=== PATIENT | female | born 1990 | race Caucasian/White ===

== ENCOUNTER → 2016-07-17 | Outpatient (CLI) | payer BC, OTHER ==
--- NOTE | 2016-07-17 21:37 | REP ---
Clinical: Trauma. Technique: AP, lateral, bilateral oblique views left foot Findings: The osseous structures and joint spaces are intact and normal. There is no evidence for acute fracture or dislocation. Surrounding soft tissues are unremarkable. No subcutaneous emphysema or radiodense foreign body. Impression: Normal examination. No acute fracture or dislocation. Signed by Ld Waller MD 07/17/2016 09:29 P
== END ==
LOC: M WUC 16:51
PROVIDERS: ATTEND Physician Assistant
DX: S93.602A Unspecified sprain of left foot, initial encounter (principal); X58.XXXA Exposure to other specified factors, initial encounter; Y92.89 Other specified places as the place of occurrence of the external cause

== ENCOUNTER → 2016-10-15 | Outpatient (REF) | payer OTHER | LOC: M SFHCWAGY 15:05 | PROVIDERS: ATTEND Nurse Practitioner Family | DX: Z12.4 Encounter for screening for malignant neoplasm of cervix (principal) ==

== ENCOUNTER → 2016-10-17 | Outpatient (CLI) | payer OTHER ==
--- NOTE | 2016-10-17 15:22 | REP ---
AP LATERAL THORACIC SPINE, THREE VIEWS: HISTORY: Disc degeneration. There is no acute fracture or subluxation. The intervertebral discs are normal in height. There is minimal scoliosis of the mid thoracic spine convex to the right and lower thoracic and lumbar spine convex to the left. IMPRESSION: There is no acute fracture or subluxation. Signed by Colin Oconnor MD 10/17/2016 03:24 P
--- NOTE | 2016-10-17 15:22 | REP ---
LUMBAR SPINE, TWO VIEWS: HISTORY: Disc degeneration. There is no acute fracture or subluxation. The intervertebral discs are normal in height. There is minimal scoliosis of the lower thoracic and lumbar spine convex to the left. IMPRESSION: There is no acute fracture or subluxation. Signed by Colin Oconnor MD 10/17/2016 03:25 P
--- NOTE | 2016-10-17 15:40 | REP ---
CERVICAL SPINE, TWO VIEWS: HISTORY: Disc degeneration. There is no acute fracture or subluxation. The intervertebral discs are normal in height. There is loss of the normal lordotic curve. IMPRESSION: There is no acute fracture or subluxation. Signed by Colin Oconnor MD 10/17/2016 03:41 P
== END ==
LOC: M RAD 14:22
PROVIDERS: ATTEND Chiropractor
DX: M50.31 Other cervical disc degeneration, high cervical region (principal)

== ENCOUNTER → 2018-02-24 | Outpatient (REF) | payer OTHER, BC | LOC: M LAB REF 19:17 | DX: R30.0 Dysuria (principal) ==

== ENCOUNTER → 2019-01-11 | Outpatient (CLI) | payer BC ==
--- NOTE | 2019-01-11 13:39 | REP ---
LEFT BREAST ULTRASOUND: HISTORY: Left breast lump 1 month just medial and inferior to left nipple. Family history of breast cancer at age 50 and paternal grandmother. Tyrer-Cuzick lifetime risk of breast cancer 23.3%. Real-time sonographic evaluation of the left breast performed near the nipple at about 8 o'clock. There is an oval hypoechoic mass with lobulated margins, wider than tall and measuring 1.7 x 1.4 x 0.9 cm. With duplex Doppler evaluation there is internal blood flow. IMPRESSION: ACR 4 suspicious. Oval hypoechoic nodule near the nipple left breast 8 o'clock position. It measures 1.7 x 1.4 x 0.9 cm and appears to be solid with internal blood flow. Recommend ultrasound guided biopsy.
== END ==
LOC: M WHC 10:23
PROVIDERS: ATTEND Nurse Practitioner Family
DX: N63.20 Unspecified lump in the left breast, unspecified quadrant (principal); Z80.3 Family history of malignant neoplasm of breast

== ENCOUNTER → 2019-03-19 | Outpatient (CLI) | payer OTHER ==
[2019-03-19 17:12] LABS: FREE T4 1.15 NG/DL (0.76-1.46); THYROID STIMULATING HORMONE 1.25 uIU/ML (0.358-3.740)
[2019-03-19 17:14] LABS: TOTAL 25(OH) VITAMIN D 40.6 NG/ML (30.0-100.0)
[2019-03-19 17:18] LABS: BASO # 0.1 10^3/uL (0.0-0.2); EOS # 0.1 10^3/uL (0.0-0.5); EOS % 1.5 % (0.0-3.0); HEMATOCRIT 39.9 % (36.0-47.0); HEMOGLOBIN 13.5 g/dl (12.0-15.5); LYMPH # 2.1 10^3/uL (1.5-5.0); LYMPH % 35.3 % (24.0-44.0); MEAN CORPUSCULAR HGB CONC 33.8 g/dl (32.0-36.5); MEAN CORPUSCULAR VOLUME 88.7 fl (80.0-96.0); MONO # 0.5 10^3/uL (0.0-0.8); NEUTROPHILS # 3.1 10^3/uL (1.5-8.5); NEUTROPHILS % 52.9 % (36.0-66.0); PLATELET COUNT, AUTOMATED 209 10^3/uL (150-450); WHITE BLOOD COUNT 5.9 10^3/uL (4.0-10.0)
== END ==
LOC: M WUC 12:23
PROVIDERS: ATTEND Obstetrics & Gynecology
DX: R53.83 Other fatigue (principal)

== ENCOUNTER → 2019-03-30 | Outpatient (CLI) | payer OTHER ==
[2019-03-30 16:49] LABS: ALBUMIN 4.4 GM/DL (3.2-5.2); ALT/SGPT 31 U/L (12-78); BILIRUBIN,TOTAL 0.6 MG/DL (0.2-1.0); BLOOD UREA NITROGEN 8 MG/DL (7-18); CALCIUM LEVEL 8.9 MG/DL (8.5-10.1); CARBON DIOXIDE LEVEL 26 MEQ/L (21-32); CHLORIDE LEVEL 106 MEQ/L (98-107); CREATININE FOR GFR 0.79 MG/DL (0.55-1.30); GLOMERULAR FILTRATION RATE > 60.0 (>60); GLUCOSE, FASTING 92 MG/DL (70-100); POTASSIUM SERUM 3.9 MEQ/L (3.5-5.1); SODIUM LEVEL 140 MEQ/L (136-145); TOTAL PROTEIN 7.5 GM/DL (6.4-8.2)
[2019-03-30 17:09] LABS: ESTRADIOL 38.1 PG/ML
[2019-04-05 14:39] LABS: 17 HYDROXY PROGESTERONE 12 ng/dL (.); ANA (HEP2) Negative (.); ANTI DS-DNA AB <1:10 titer (.); Lyme Disease IgG/IgM Antibodie <0.91 ISR (0.00-0.90); Lyme Disease IgM Ab Quantitati <0.80 index (0.00-0.79); SSA SJOGRENS A <0.2 AI (0.0-0.9); SSB SJOGRENS B <0.2 AI (0.0-0.9)
== END ==
LOC: M LAB 15:30
PROVIDERS: ATTEND Physician Assistant
DX: R53.83 Other fatigue (principal); N76.0 Acute vaginitis

== ENCOUNTER → 2019-04-13 | Outpatient (CLI) | payer OTHER ==
--- NOTE | 2019-04-15 16:07 | SLEEPHOME ---
DATE OF PROCEDURE: 04/13/2019 ORDERED BY: Burke Kimball Diagnostic home sleep testing was performed due to concern for the obstructive sleep apnea syndrome in this patient with a history of daytime drowsiness. For testing a nocturnal T3 respiratory monitoring device was used. Continuous record was made of pulse, oxygen saturation, airflow, chest, abdominal strain and body position. 11 hours and 59 minutes of data were reviewed. There were 9 hours and 23 minutes marked as time in bed. During the interval marked time in bed, there were only 18 respiratory events identified of 10 seconds in duration or greater for a respiratory event index of 1.9 per hour. The events that were seen were obstructive. Baseline pulse rate 83, pulse rate ranged 65-108. Baseline saturation 96%. Very brief desaturations below 90% were seen and testing was performed in both the supine and nonsupine positions. IMPRESSION: Essentially normal diagnostic home sleep test with no respiratory or oximetric patterning to support a diagnosis of obstructive sleep apnea syndrome.
== END ==
LOC: M SLEEP HO 10:37
PROVIDERS: ATTEND Physician Assistant
DX: G47.10 Hypersomnia, unspecified (principal)

== ENCOUNTER → 2019-10-12 | Outpatient (CLI) | payer OTHER ==
--- NOTE | 2019-10-12 17:59 | REP ---
HISTORY: Irritable bowel syndrome, hiatal hernia, and gastroesophageal reflux disease. COMPARISON: None. FINDINGS: KUB shows the intestinal gas pattern to be nonspecific. The organ silhouettes insofar as delineated are unremarkable. There is no evidence of free intraperitoneal air. IMPRESSION: Nonspecific. Electronically Signed by Roscoe Alba DO 10/13/2019 08:59 A
[2019-10-12 18:13] LABS: C REACTIVE PROTEIN QUANTITATIV < 0.30 MG/DL (0.00-0.30); FREE T4 0.96 NG/DL (0.76-1.46); MAGNESIUM LEVEL 2.2 MG/DL (1.8-2.4)
[2019-10-12 18:15] LABS: TOTAL 25(OH) VITAMIN D 31.8 NG/ML (30.0-100.0)
== END ==
LOC: M LAB 16:35
PROVIDERS: ATTEND Internal Medicine Gastroenterology
DX: K21.9 Gastro-esophageal reflux disease without esophagitis (principal); K58.0 Irritable bowel syndrome with diarrhea; K44.9 Diaphragmatic hernia without obstruction or gangrene

== ENCOUNTER → 2019-10-13 | Outpatient (REF) | payer OTHER | LOC: M LAB REF 15:16 | PROVIDERS: ATTEND Internal Medicine Gastroenterology | DX: K21.9 Gastro-esophageal reflux disease without esophagitis (principal); K58.0 Irritable bowel syndrome with diarrhea; K44.9 Diaphragmatic hernia without obstruction or gangrene ==

== ENCOUNTER → 2019-11-01 | Outpatient (CLI) | payer OTHER ==
[2019-11-01 16:21] LABS: BASO # 0.1 10^3/uL (0.0-0.2); EOS # 0.4 10^3/uL (0.0-0.5); EOS % 4.8 % (0.0-3.0); HEMATOCRIT 38.8 % (36.0-47.0); HEMOGLOBIN 13.2 g/dl (12.0-15.5); LYMPH # 2.7 10^3/uL (1.5-5.0); LYMPH % 33.9 % (24.0-44.0); MEAN CORPUSCULAR HEMOGLOBIN 30.7 pg (27.0-33.0); MEAN CORPUSCULAR VOLUME 90.2 fl (80.0-96.0); MONO # 0.7 10^3/uL (0.0-0.8); MONO % 8.1 % (0.0-5.0); NEUTROPHILS # 4.2 10^3/uL (1.5-8.5); NEUTROPHILS % 52.1 % (36.0-66.0); PLATELET COUNT, AUTOMATED 226 10^3/uL (150-450)
[2019-11-01 16:47] LABS: ALBUMIN 4.1 GM/DL (3.2-5.2); ALT/SGPT 30 U/L (12-78); BILIRUBIN,TOTAL 0.3 MG/DL (0.2-1.0); BLOOD UREA NITROGEN 7 MG/DL (7-18); CARBON DIOXIDE LEVEL 29 MEQ/L (21-32); CHLORIDE LEVEL 105 MEQ/L (98-107); CREATININE FOR GFR 0.77 MG/DL (0.55-1.30); FERRITIN 92 NG/ML (8-252); GLOMERULAR FILTRATION RATE > 60.0 (>60); GLUCOSE, FASTING 93 MG/DL (70-100); IRON (FE) 79 UG/DL (50-170); PERCENT SATURATION 24.4 % (13.2-45.0); RHEUMATOID FACTOR QUANT < 10.0 IU/ML (<15.0); SODIUM LEVEL 138 MEQ/L (136-145); TOTAL IRON BINDING CAPACITY 324 UG/DL (250-450); TOTAL PROTEIN 7.5 GM/DL (6.4-8.2)
[2019-11-01 16:52] LABS: TOTAL 25(OH) VITAMIN D 32.1 NG/ML (30.0-100.0)
[2019-11-01 16:53] LABS: ESTRADIOL 162.2 PG/ML; FOLLICLE STIMULATING HORMONE 5.2 mIU/mL; LUTEINIZING HORMONE 8.5 mIU/mL
== END ==
LOC: M LAB 15:49
PROVIDERS: ATTEND Family Medicine
DX: R53.82 Chronic fatigue, unspecified (principal)

== ENCOUNTER 2019-11-26 15:13 | Emergency (ER) | payer OTHER ==
[~2019-11-26] VITALS: Ht 144.8 cm; Wt 50.2 kg
[2019-11-26] MEDS ORDERED: ESOM40CA35 PO (15:29)
[2019-11-26] MEDS ORDERED: AZIT500T5 PO (15:29)
[2019-11-26] MEDS ORDERED: AMIT10TA PO (15:29)
[2019-11-26] MEDS ORDERED: VANC125C3 PO (15:29)
[2019-11-26] MEDS ORDERED: PANTOPRAZOLE 40MG VIAL (C9113 PER 1) IV ONE (15:45)
[2019-11-26 16:51] LABS: BASO # 0.1 10^3/uL (0.0-0.2); BASO % 0.7 % (0.0-1.0); EOS # 2.7 10^3/uL (0.0-0.5); HEMATOCRIT 40.3 % (36.0-47.0); LYMPH % 18.2 % (24.0-44.0); MEAN CORPUSCULAR HEMOGLOBIN 31.2 pg (27.0-33.0); MEAN CORPUSCULAR HGB CONC 34.7 g/dl (32.0-36.5); MEAN CORPUSCULAR VOLUME 89.8 fl (80.0-96.0); MONO # 0.6 10^3/uL (0.0-0.8); NEUTROPHILS # 5.7 10^3/uL (1.5-8.5); NEUTROPHILS % 51.9 % (36.0-66.0); PLATELET COUNT, AUTOMATED 189 10^3/uL (150-450); RED BLOOD COUNT 4.49 10^6/uL (4.00-5.40); WHITE BLOOD COUNT 11.1 10^3/uL (4.0-10.0)
[2019-11-26 17:08] LABS: ALBUMIN 4.3 GM/DL (3.2-5.2); ALT/SGPT 36 U/L (12-78); BILIRUBIN,DIRECT 0.1 MG/DL (0.0-0.2); BILIRUBIN,TOTAL 0.4 MG/DL (0.2-1.0); BLOOD UREA NITROGEN 7 MG/DL (7-18); CALCIUM LEVEL 8.8 MG/DL (8.5-10.1); CARBON DIOXIDE LEVEL 27 MEQ/L (21-32); CHLORIDE LEVEL 105 MEQ/L (98-107); CREATININE FOR GFR 0.71 MG/DL (0.55-1.30); GLOMERULAR FILTRATION RATE > 60.0 (>60); GLUCOSE, FASTING 84 MG/DL (70-100); LIPASE 82 U/L (73-393); POTASSIUM SERUM 4.2 MEQ/L (3.5-5.1); SODIUM LEVEL 138 MEQ/L (136-145); TOTAL PROTEIN 7.7 GM/DL (6.4-8.2)
[2019-11-26 17:19] LABS: EOS % 23.9 % (0.0-3.0)
[2019-11-26] MEDS ORDERED: KETOROLAC 30 MG/ML 1ML VIAL IV ONE ×2 (17:45→21:45)
[2019-11-26] MEDS ORDERED: SUCRALFATE SUSP 1GM/10ML UD PO ONE (17:45)
[2019-11-26] MEDS ORDERED: ISOVUE-370 76% 100ML VIAL As Ordered ONE (18:18)
[2019-11-26 19:06] LABS: HCG, SERUM QUALITATIVE NEGATIVE (NEGATIVE)
--- NOTE | 2019-11-26 19:58 | REPVR ---
PROCEDURE INFORMATION: Exam: CT Abdomen And Pelvis With Contrast Exam date and time: 11/26/2019 7:34 PM Age: 28 years old Clinical indication: Abdominal pain; Localized; Right upper quadrant (ruq); Additional info: Ruq, epigastric, luq abdominal pain TECHNIQUE: Imaging protocol: Computed tomography of the abdomen and pelvis with intravenous contrast. Radiation optimization: All CT scans at this facility use at least one of these dose optimization techniques: automated exposure control; mA and/or kV adjustment per patient size (includes targeted exams where dose is matched to clinical indication); or iterative reconstruction. Contrast material: ISOVUE 370; Contrast volume: 100 ml; Contrast route: IV; COMPARISON: No relevant prior studies available. FINDINGS: Lungs: No suspicious mass or airspace process in the visualized lung bases. Liver: Liver appears normal with no focal abnormality. Gallbladder and bile ducts: Gallbladder is present and shows no evidence of gallstone. Pancreas: Pancreas appears normal. No focal mass or peripancreatic inflammation. Spleen: Spleen appears homogeneous without focal mass. Adrenals: Adrenal glands are normal in appearance. Kidneys and ureters: Kidneys appear normal, with no stone, solid mass or hydronephrosis. Stomach and bowel: No evidence of small bowel obstruction. No evidence of acute diverticulitis. Appendix: Appendix is not seen. No RLQ inflammation to suggest appendicitis. Intraperitoneal space: No pneumoperitoneum. No abnormal pelvic mass. Vasculature: No aortic aneurysm. Main portal and splenic veins enhance normally. Lymph nodes: . No enlarged lymph nodes. Bladder: Urinary bladder appears normal. Reproductive: Probable benign 15 mm left ovarian follicle. Bones/joints: Bony structures show no acute fracture or destructive process. Soft tissues: Unremarkable. IMPRESSION: 1. No convincing acute or concerning focal abdominal or pelvic process to explain right upper quadrant and epigastric pain. 2. Radiodense material dependently within the stomach lumen may most likely represent ingested antacids or other medication. If there is history of hematemesis, gastroenterology consultation is recommended since the radiodense material could also represent intraluminal blood Electronically signed by: Evan Syed On 11/26/2019 19:58:10 PM
[2019-11-26] MEDS ORDERED: NS 1,000 ML IV ONE (20:45)
[2019-11-26] MEDS ORDERED: traMADol 50 MG TAB (BULK 4 TAB ED) PO ONE (21:45)
[2019-11-26 21:46] VITALS: BP 122/86
== END 2019-11-26 22:17 | disposition home or self-care (01) ==
LOC: EEVIPCON 15:13 → M ED 15:13
DX: K58.9 Irritable bowel syndrome, unspecified (principal); J45.909 Unspecified asthma, uncomplicated; K21.9 Gastro-esophageal reflux disease without esophagitis; M41.9 Scoliosis, unspecified; Z79.899 Other long term (current) drug therapy; Z88.1 Allergy status to other antibiotic agents; Z88.2 Allergy status to sulfonamides
CPT/HCPCS: 74177; 80048; 80076; 81001; 83605; 83690; 84703; 85025; 86850; 86900; 86901; 87040; 87076; 87507; 93041; 96361; 96374; 96375; 96376; 99285; C9113; J1885; Q9967

== ENCOUNTER → 2019-12-08 | Outpatient (CLI) | payer OTHER ==
[~2019-12-08] MED LIST: AMIT10TA PO; AZIT500T5 PO; ESOM40CA35 PO; VANC125C3 PO
[2019-12-08 16:29] LABS: MAGNESIUM LEVEL 2.2 MG/DL (1.8-2.4)
[2019-12-08 16:40] LABS: TOTAL 25(OH) VITAMIN D 53.5 NG/ML (30.0-100.0)
[2019-12-13 18:07] LABS: PORPHOBILINOGEN RANDOM URINE 1.1 mg/L (0.0-2.0)
== END ==
LOC: M LAB 15:34
PROVIDERS: ATTEND Internal Medicine Gastroenterology
DX: R19.4 Change in bowel habit (principal); R11.0 Nausea; K21.9 Gastro-esophageal reflux disease without esophagitis; A04.5 Campylobacter enteritis

== ENCOUNTER → 2020-01-12 | Outpatient (CLI) | payer OTHER ==
[~2020-01-12] MED LIST changes: +E-Z-GAS II EFFERVESCENT PACKET (SODIUM BICARB./CITRIC ACID/SIMETHICONE) As Ordered ONE; +E-Z-HD 98% w/w 340GM SUSP BTL As Ordered ONE; +E-Z-PAQUE 96% w/w SUSP 176GM BTL As Ordered ONE
--- NOTE | 2020-01-12 15:19 | REP ---
Examination Requested: Esophagram Barium Swallow Reason For Exam/Comment: Gastroesophageal reflux disease Esophagram: The procedure was performed MADIE Mendoza, under the direct supervision of Dr. Brand. The images were reviewed with Dr. Brand. A single PA chest x-ray is submitted as a reducing system operator film. The superior mediastinal structures are midline. The heart size is within normal limits. The lungs are clear. Liquid barium and gas producing granules were given in the erect position as well as liquid barium in the prone oblique position, in order to perform a double contrast esophagram examination. Oral and pharyngeal stages of the examination were unremarkable. Esophageal transport is efficient and there is no esophagitis, stricture, or mucosal ring noted. There is a small hiatal hernia noted. Gastroesophageal reflux was not visualized during the course of the exam. Impression: 1. Small hiatal hernia. 0.3 minutes of fluoroscopy time was utilized for this procedure. Some fluoroscopic images are performed with last image hold technology. These images require no additional radiation. Reviewed by MADIE Nichols 01/12/2020 01:55 P Electronically Signed by Ben Valentino MD 01/12/2020 03:10 P
== END ==
LOC: M RAD 10:11
DX: K21.9 Gastro-esophageal reflux disease without esophagitis (principal); K44.9 Diaphragmatic hernia without obstruction or gangrene

== ENCOUNTER → 2020-02-21 | Outpatient (REF) | payer OTHER ==
[~2020-02-21] MED LIST changes: -E-Z-GAS II EFFERVESCENT PACKET (SODIUM BICARB./CITRIC ACID/SIMETHICONE) As Ordered ONE; -E-Z-HD 98% w/w 340GM SUSP BTL As Ordered ONE; -E-Z-PAQUE 96% w/w SUSP 176GM BTL As Ordered ONE
== END ==
LOC: M LAB REF 08:32
PROVIDERS: ATTEND Physician Assistant
DX: N39.0 Urinary tract infection, site not specified (principal)

== ENCOUNTER → 2020-03-27 | Outpatient (REF) | payer OTHER | LOC: M LAB REF 17:01 | PROVIDERS: ATTEND Family Medicine | DX: R30.0 Dysuria (principal) ==

== ENCOUNTER → 2020-04-10 | Outpatient (CLI) | payer OTHER ==
[2020-04-10 16:23] LABS: BASO # 0.1 10^3/uL (0.0-0.2); BASO % 0.7 % (0.0-1.0); EOS # 0.2 10^3/uL (0.0-0.5); EOS % 2.2 % (0.0-3.0); HEMATOCRIT 36.4 % (36.0-47.0); HEMOGLOBIN 12.3 g/dl (12.0-15.5); LYMPH # 2.5 10^3/uL (1.5-5.0); LYMPH % 34.5 % (24.0-44.0); MEAN CORPUSCULAR HEMOGLOBIN 30.1 pg (27.0-33.0); MEAN CORPUSCULAR HGB CONC 33.8 g/dl (32.0-36.5); MEAN CORPUSCULAR VOLUME 89.2 fl (80.0-96.0); MONO # 0.5 10^3/uL (0.0-0.8); MONO % 6.9 % (0.0-5.0); NEUTROPHILS % 55.6 % (36.0-66.0); PLATELET COUNT, AUTOMATED 211 10^3/uL (150-450); RED BLOOD COUNT 4.08 10^6/uL (4.00-5.40); WHITE BLOOD COUNT 7.2 10^3/uL (4.0-10.0)
[2020-04-10 16:38] LABS: ALBUMIN 4.1 GM/DL (3.2-5.2); ALT/SGPT 20 U/L (12-78); BILIRUBIN,TOTAL 0.5 MG/DL (0.2-1.0); BLOOD UREA NITROGEN 13 MG/DL (7-18); CALCIUM LEVEL 8.8 MG/DL (8.5-10.1); CARBON DIOXIDE LEVEL 27 MEQ/L (21-32); CHLORIDE LEVEL 106 MEQ/L (98-107); GLOMERULAR FILTRATION RATE > 60.0 (>60); GLUCOSE, FASTING 85 MG/DL (70-100); POTASSIUM SERUM 3.7 MEQ/L (3.5-5.1); SODIUM LEVEL 138 MEQ/L (136-145); TOTAL PROTEIN 7.1 GM/DL (6.4-8.2)
--- NOTE | 2020-04-14 00:32 | ECGEPIP ---
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
--- NOTE | 2020-04-19 11:45 | REP ---
TWO-VIEW CHEST HISTORY: Preop testing. COMPARISON: 08/23/2015. TECHNIQUE: PA and lateral views of the chest are performed. FINDINGS: There is no acute infiltrate identified. Lungs are clear. Heart and mediastinum are within normal limits and unchanged. There is again mild curvature of the thoracic spine convex to the right. IMPRESSION: No acute pulmonary disease with no change since prior study. MTDD
== END ==
LOC: M LAB 15:10
PROVIDERS: ATTEND Thoracic Surgery (Cardiothoracic Vascular Surgery)
DX: Z01.818 Encounter for other preprocedural examination (principal); I45.19 Other right bundle-branch block; R94.31 Abnormal electrocardiogram [ECG] [EKG]

== ENCOUNTER → 2020-08-10 | Outpatient (CLI) | payer OTHER ==
[2020-08-10 18:29] LABS: ALBUMIN 4.3 GM/DL (3.2-5.2); ALT/SGPT 18 U/L (12-78); BILIRUBIN,DIRECT 0.2 MG/DL (0.0-0.2); BILIRUBIN,TOTAL 0.4 MG/DL (0.2-1.0); BLOOD UREA NITROGEN 13 MG/DL (7-18); CALCIUM LEVEL 9.2 MG/DL (8.5-10.1); CARBON DIOXIDE LEVEL 27 MEQ/L (21-32); CHLORIDE LEVEL 106 MEQ/L (98-107); CREATININE FOR GFR 0.73 MG/DL (0.55-1.30); GLOMERULAR FILTRATION RATE > 60.0 (>60); GLUCOSE, FASTING 82 MG/DL (70-100); LIPASE 134 U/L (73-393); POTASSIUM SERUM 4.2 MEQ/L (3.5-5.1); SODIUM LEVEL 138 MEQ/L (136-145); TOTAL PROTEIN 7.3 GM/DL (6.4-8.2)
== END ==
LOC: M LAB 16:36
PROVIDERS: ATTEND Internal Medicine Gastroenterology
DX: R19.7 Diarrhea, unspecified (principal); R10.9 Unspecified abdominal pain

== ENCOUNTER → 2020-08-11 | Outpatient (REF) | payer OTHER | LOC: M LAB REF 15:53 | PROVIDERS: ATTEND Internal Medicine Gastroenterology | DX: R19.7 Diarrhea, unspecified (principal); R10.9 Unspecified abdominal pain ==

== ENCOUNTER → 2020-10-13 | Outpatient (REF) | payer OTHER ==
[~2020-10-13] MED LIST changes: -AMIT10TA PO; +AMIT10TA7 PO
== END ==
LOC: M LAB REF 15:21
PROVIDERS: ATTEND Internal Medicine Gastroenterology
DX: K59.00 Constipation, unspecified (principal)

== ENCOUNTER → 2020-11-23 | Outpatient (REF) | payer OTHER ==
[~2020-11-23] MED LIST changes: +ADV100INH INH; +ALAW0.02 OP; +ALL10TAB3 PO; +CVS1CAP2 PO; +VITMTA PO; +[UNRECOGNIZED DRUG - OTHER] PO
== END ==
LOC: M LAB REF 18:39
PROVIDERS: ATTEND Physician Assistant
DX: N39.0 Urinary tract infection, site not specified (principal)

== ENCOUNTER 2020-11-27 16:07 | Outpatient (CLI) | payer OTHER ==
[~2020-11-27] VITALS: Ht 144.8 cm; Wt 43.1 kg
[~2020-11-27 16:07] MED LIST changes: -ADV100INH INH; -ALAW0.02 OP; -ALL10TAB3 PO; -CVS1CAP2 PO; -VITMTA PO; -[UNRECOGNIZED DRUG - OTHER] PO
[2020-11-27 16:10] VITALS: BP 123/83
[2020-11-27] MEDS ORDERED: BEZLOTOXUMAB 500 MG in NS 100 ML IV ONE (16:30)
[2020-11-27] MEDS ORDERED: ALAW0.02 OP (17:17)
[2020-11-27] MEDS ORDERED: ADV100INH INH (17:24)
[2020-11-27] MEDS ORDERED: VITMTA PO (17:24)
[2020-11-27] MEDS ORDERED: CVS1CAP2 PO (17:24)
[2020-11-27] MEDS ORDERED: ALL10TAB3 PO (17:25)
[2020-11-27] MEDS ORDERED: [UNRECOGNIZED DRUG - OTHER] PO (17:28)
[2020-11-27 18:09] VITALS: BP 110/67
== END 2020-11-27 18:10 | disposition home or self-care (01) ==
LOC: M INFU 16:07
PROVIDERS: ATTEND Internal Medicine Infectious Disease
DX: A04.71 Enterocolitis due to Clostridium difficile, recurrent (principal); Z88.1 Allergy status to other antibiotic agents; Z88.2 Allergy status to sulfonamides
CPT/HCPCS: 96365; J0565

== ENCOUNTER → 2020-12-22 | Outpatient (CLI) | payer OTHER ==
[~2020-12-22] MED LIST changes: +ADV100INH INH; +ALAW0.02 OP; +ALL10TAB3 PO; +CVS1CAP2 PO; +E-Z-HD 98% w/w 340GM SUSP BTL As Ordered ONE; +E-Z-PAQUE 96% w/w SUSP 176GM BTL As Ordered ONE; +VITMTA PO; +[UNRECOGNIZED DRUG - OTHER] PO
--- NOTE | 2020-12-22 18:32 | REP ---
INDICATION: ABD BLOATING, S/P SURGERY. COMPARISON: None. TECHNIQUE: This procedure was performed under the direct supervision of Dr. Mark. Images were reviewed with Dr. Mark. Liquid barium was given in the erect position as well as liquid barium in the prone oblique positions in order to perform a single contrast esophagram examination. A combination of fluoroscopy, spot films and last image hold technology was utilized. 0.7 minutes of fluoro time was utilized for this procedure. FINDINGS: A single view PA chest x-ray is submitted as a surgical supplies sterilizer film. The superior mediastinal structures are midline. The heart size is within normal limits. The lungs are clear. The oral and pharyngeal stages of deglutition are unremarkable. Esophageal transport is prompt and efficient and there is no esophagitis, stricture, mucosal ring, or hiatal hernia.There are postsurgical changes consistent with the patient's history of Dannielle fundoplication. There is free flow of contrast through the fundoplication without evidence of stricture or obstruction. Gastroesophageal reflux is not demonstrated on this examination. IMPRESSION: Postsurgical changes consistent with the patient's history of Dannielle fundoplication. There is no evidence of stricture or obstruction. Gastroesophageal reflux is not demonstrated on this examination. <Electronically signed by Jeff Pillai > 12/22/20 [id number] <Electronically signed by Rajiv Mark > 12/22/20 [id number]
== END ==
LOC: M RAD 10:26
PROVIDERS: ATTEND Physician Assistant
DX: A04.72 Enterocolitis due to Clostridium difficile, not specified as recurrent (principal); K21.9 Gastro-esophageal reflux disease without esophagitis; R14.0 Abdominal distension (gaseous); Z98.890 Other specified postprocedural states

== ENCOUNTER → 2021-02-22 | Outpatient (REF) | payer OTHER ==
[~2021-02-22] MED LIST changes: -E-Z-HD 98% w/w 340GM SUSP BTL As Ordered ONE; -E-Z-PAQUE 96% w/w SUSP 176GM BTL As Ordered ONE
== END ==
LOC: M SFHCPLAZ 17:40
PROVIDERS: ATTEND Internal Medicine Infectious Disease
DX: A49.8 Other bacterial infections of unspecified site (principal)

== ENCOUNTER → 2021-03-01 | Outpatient (REF) | payer OTHER | LOC: M SFHCWAGY 18:57 | PROVIDERS: ATTEND Internal Medicine Infectious Disease | DX: A49.8 Other bacterial infections of unspecified site (principal) ==